=== PATIENT | female | born 1960 | race Caucasian/White ===

== ENCOUNTER 2023-08-24 07:32 | Emergency (ER) | payer OTHER ==
[~2023-08-24] VITALS: Ht 162.6 cm; Wt 59.0 kg
[2023-08-24 07:50] VITALS: BP 110/52; PULSE 80; TEMP 98.9; O2SAT 100
[2023-08-24 10:13] LABS: BASOPHILS % 0.8 % (0.0-2.0); EOSINOPHILS % 1.6 % (0.0-5.0); HEMOGLOBIN. 13.5 g/dL (12.0-16.0); LYMPHOCYTES % 30.5 % (20.0-50.0); MEAN CORPUSCULAR HEMOGLOBIN 29.8 pg (28.0-32.0); MEAN CORPUSCULAR HGB CONC 33.7 g/dL (31.0-37.0); MEAN CORPUSCULAR VOLUME 88.5 fL (81.0-99.0); MEAN PLATELET VOLUME 8.4 fl (7.4-10.4); MONOCYTES % 7.2 % (2.0-8.0); NEUTROPHILS % 59.9 % (40.0-76.0); PLATELET 201 x1000/uL (130-400); RED BLOOD CELL COUNT 4.52 mill/uL (4.2-5.4); RED CELL DISTRIBUTION WIDTH 13.6 % (11.6-14.6); WHITE BLOOD COUNT 6.6 x1000/uL (4.5-11.0)
[2023-08-24 10:24] LABS: CHLORIDE 106 mEq/L (98-107); POTASSIUM 3.6 mEq/L (3.5-5.1); SODIUM 140 mEq/L (136-145)
[2023-08-24 10:25] LABS: CARBON DIOXIDE 31 mEq/L (21-32)
[2023-08-24 10:30] LABS: CREATININE 0.7 mg/dL (0.6-1.0); GLUCOSE 95 mg/dL (70-105); UREA NITROGEN BLOOD 14 mg/dL (9-23)
[2023-08-24 10:32] LABS: ALANINE AMINOTRANSFERASE 13 IU/L (10-49); ALBUMIN 4.2 g/dL (3.2-4.8); ASPARTATE AMINOTRANSFERASE 26 IU/L (<34)
[2023-08-24 10:33] LABS: BILIRUBIN TOTAL 0.6 mg/dL (0.1-1.0); PROTEIN TOTAL 6.8 g/dL (6.0-8.3)
[2023-08-24 10:37] LABS: CALCIUM 9.8 mg/dL (8.7-10.4)
[2023-08-24 10:58] LABS: TROPONIN I HIGH SENSITIVITY < 4 ng/L (3.0-34)
== END 2023-08-24 11:55 | disposition home or self-care (01) ==
LOC: ER 08:15
DX: R42 Dizziness and giddiness (principal); R51.9 Headache, unspecified; E78.00 Pure hypercholesterolemia, unspecified
CPT/HCPCS: 36415; 80053; 84484; 85025; 93005; 99284